=== PATIENT | male | born 1985 | race Caucasian/White ===

== ENCOUNTER 2021-04-26 08:12 | Emergency (ER) | payer BC, OTHER ==
[~2021-04-26] VITALS: Ht 190.5 cm; Wt 116.6 kg
[2021-04-26 09:13] LABS: CALCIUM 8.9 mg/dL (8.5-10.1); CREATININE 1.4 mg/dL (0.7-1.3)
[2021-04-26] MEDS ORDERED: LISINOPRIL20 MG PO (09:26)
[2021-04-26 09:39] VITALS: BP 127/89
[2021-04-26] MEDS ORDERED: LISINOPRIL10 MG PO (09:39)
== END 2021-04-26 09:39 | disposition home or self-care (01) ==
LOC: ER 08:12
PROVIDERS: Student in an Organized Health Care Education/Training Program
DX: R03.0 Elevated blood-pressure reading, without diagnosis of hypertension (principal)